=== PATIENT | female | born 1985 | race Hispanic/Latino ===

== ENCOUNTER 2020-12-30 00:58 | Emergency (ER) | payer BC ==
[2020-12-30] MEDS ORDERED: NA CHLORIDE 0.9% 1,000 ML ONE ×2 (01:32→03:00)
[2020-12-30] MEDS ORDERED: ONDANSETRON 4 MG/2 ML VIAL ONE (01:32)
[2020-12-30] MEDS ORDERED: MORPHINE 4 MG/ML SYR ONE (01:32)
[2020-12-30 01:33] LABS: Basophils % 0.7 % (0-1.3); Hematocrit 34.5 % (36.0-45.0); Lymphocytes % 20.6 % (15.3-44.8); MPV 9.9 fL (7.6-11.3); RBC Red Blood Cell Count 4.27 M/uL (3.86-4.86)
[2020-12-30 01:50] LABS: ALT/SGPT 24 U/L (12-78); AST/SGOT 16 U/L (15-37); Albumin 2.6 g/dL (3.4-5.0); Alkaline Phosphatase 110 U/L (45-117); BUN Blood Urea Nitrogen 27 mg/dL (7-18); Bicarbonate 23 mmol/L (21-32); Bilirubin Direct < 0.1 mg/dL (0-0.2); Bilirubin Total 0.4 mg/dL (0.2-1.0); Glucose Level 312 mg/dL (74-106); Lipase 223 U/L (73-393); Potassium 4.2 mmol/L (3.5-5.1); Protein, Total 7.6 g/dL (6.4-8.2); Sodium Level 139 mmol/L (136-145)
[2020-12-30 02:26] LABS: Urine Blood 1+ (NEG); Urine Glucose 2+ (NEG); Urine Protein 3+ (NEG); Urine Specific Gravity 1.025 (1.005-1.030)
[2020-12-30 02:49] LABS: Arterial Blood Carboxyhemoglob 1.3 % (0-1.5); Blood Gas Oxyhemoglobin 95.3 % (94-97); Blood O2 Saturation 97.5 % (92-98.5)
[2020-12-30 02:49] LABS: Urine Bacteria >50 /HPF (<20); Urine Mucus 2+ /HPF (NONE SEEN); Urine Yeast FEW (NONE SEEN)
[2020-12-30] MEDS ORDERED: CEFTRIAXONE/SWI 1gm 1 GM/10 ML SYR ONE (03:00)
[2020-12-30] MEDS ORDERED: INSULIN -REGULAR HUMAN 50 UNIT/0.5 ML ML ONE (03:35)
--- NOTE | 2020-12-30 03:49 | ER ---
Nurse's Notes [facility] Name: Cassandra Jin Age: 35 yrs Sex: Female : 1985 Arrival Date: 12/30/2020 Time: 01:01 Bed 7 Private MD: Diagnosis: UTI;Nephrolithiasis;Diabetes With Hyperglycemia Presentation: 12/30 01:11 Chief complaint: Patient states: Right lower abdomen pain that began about 6 hours ago, lp1 reports pain worsening; Denies any urinary symptoms, no N/V/D, fever. Coronavirus screen: Client denies travel out of the [place] in the last 14 days. congestion. Ebola Screen: No symptoms or risks identified at this time. Initial Sepsis Screen: Does the patient meet any 2 criteria? No. Patient's initial sepsis screen is negative. Does the patient have a suspected source of infection? No. Patient's initial sepsis screen is negative. Risk Assessment: Do you want to hurt yourself or someone else? Patient reports no desire to harm self or others. Onset of symptoms was December 29, 2020 at 19:00. 01:11 Method Of Arrival: Ambulatory lp1 01:11 Acuity: SUSANA 3 lp1 [employer]: 01:13 LMP 12/02/2020 lp1 Historical: - Allergies: 01:13 No Known Allergies; lp1 - Home Meds: 01:13 Victoza 2-Brad subcutaneous [Active]; Lisinopril Oral [Active]; Simvastatin Oral lp1 [Active]; Xigduo XR oral oral [Active]; - PMHx: 01:13 Diabetes - IDDM; Hypertension; Hyperlipidemia; lp1 - PSHx: 01:13 None; lp1 - Immunization history:: Adult Immunizations up to date. - Social history:: Smoking status: Patient denies any tobacco usage or history of. Screenin:14 Abuse screen: Denies threats or abuse. Denies injuries from another. Nutritional lp1 screening: No deficits noted. Tuberculosis screening: No symptoms or risk factors identified. Fall Risk None identified. Assessment: 01:26 General: Appears in no apparent distress. comfortable, Behavior is calm, cooperative. mg2 Pain: Complains of pain in right lower quadrant. Neuro: Level of Consciousness is awake, alert, obeys commands, Oriented to person, place, time, situation. Cardiovascular: Capillary refill < 3 seconds Patient's skin is warm and dry. Respiratory: Airway is patent Respiratory effort is even, unlabored, Respiratory pattern is regular, symmetrical. GI: Reports lower abdominal pain. : No signs and/or symptoms were reported regarding the genitourinary system. EENT: No signs and/or symptoms were reported regarding the EENT system. Derm: Skin is intact, is healthy with good turgor, Skin is pink, warm \T\ dry. normal. Musculoskeletal: Circulation, motion, and sensation intact. Capillary refill < 3 seconds. 02:06 Reassessment: Patient appears in no apparent distress at this time. Patient and/or jb4 family updated on plan of care and expected duration. Pain level reassessed. Patient is alert, oriented x 3, equal unlabored respirations, skin warm/dry/pink. Patient states feeling better. Vital Signs: 01:11 BP 161 / 88; Pulse 114; Resp 18; Temp 98.9(O); Pulse Ox 99% on R/A; Weight 104.33 kg lp1 (R); Height 5 ft. 8 in. (172.72 cm); Pain 9/10; 02:00 BP 145 / 82; Pulse 97; Resp 16; Pulse Ox 99% on R/A; jb4 03:23 BP 133 / 80; Pulse 90; Resp 18; Pulse Ox 100% on R/A; mg2 01:11 Body Mass Index 34.97 (104.33 kg, 172.72 cm) lp1 ED Course: 01:01 Patient arrived in ED. cl3 01:02 Liam Lobo MD is Attending Physician. mh7 01:12 Triage completed. lp1 01:12 Scott Gottlieb, JUDY is Primary Nurse. mg2 01:12 Arm band placed on. lp1 01:20 Inserted saline lock: 20 gauge in right antecubital area, using aseptic technique. mg2 Blood collected. by ALEXEY Pathak TEch. 01:27 Patient has correct armband on for positive identification. mg2 01:27 No provider procedures requiring assistance completed. mg2 03:47 Morales Payton MD is Referral Physician. mh7 04:05 IV discontinued, intact, bleeding controlled, No redness/swelling at site. Pressure mg2 dressing applied. Administered Medications: 01:25 Drug: Zofran (Ondansetron) 4 mg Route: IVP; Site: right antecubital; mg2 02:00 Follow up: Response: No adverse reaction jb4 01:26 Drug: NS 0.9% 1000 ml Route: IV; Rate: 1000 ml; Site: right antecubital; mg2 02:48 Follow up: Response: No adverse reaction; IV Status: Completed infusion; IV Intake: mg2 1000ml 01:26 Drug: morphine 4 mg Route: IVP; Site: right antecubital; mg2 02:07 Follow up: Response: No adverse reaction jb4 02:47 Drug: Rocephin - (cefTRIAXone) 1 grams Route: IVPB; Infused Over: 30 mins; Site: right mg2 antecubital; 04:05 Follow up: Response: No adverse reaction; IV Status: Completed infusion mg2 02:47 Drug: NS 0.9% 1000 ml Route: IV; Rate: 1000 ml; Site: right antecubital; mg2 04:04 Follow up: Response: No adverse reaction; IV Status: Completed infusion; IV Intake: mg2 1000ml 03:23 Drug: Insulin Regular Human 10 units {Co-Signature: mg2 (Scott Gottlieb RN).} Route: jb4 IVP; Site: right antecubital; 04:04 Follow up: Response: No adverse reaction; Blood sugar is lowered mg2 Intake: 02:48 IV: 1000ml; Total: 1000ml. mg2 04:04 IV: 1000ml; Total: 2000ml. mg2 Outcome: 03:48 Discharge ordered by . 7 04:05 Discharged to home ambulatory. mg2 04:05 Condition: stable 04:05 Discharge instructions given to patient, Instructed on discharge instructions, follow up and referral plans. medication usage, Demonstrated understanding of instructions, follow-up care, medications, Prescriptions given X 3. 04:05 Patient left the ED. mg2 Signatures: Terese Aguiar RN RN lp1 Jesus Harrison RN RN jb4 Scott Gottlieb RN RN mg2 Raffi Casanova cl3 Liam Lobo MD MD 7 Scott Gottlieb RN mg2
--- NOTE | 2020-12-30 03:49 | EDPHYS ---
Physician Documentation [facility] Name: Cassandra Jin Age: 35 yrs Sex: Female : 1985 Arrival Date: 12/30/2020 Time: 01:01 Bed 7 Private MD: ED Physician Liam Lobo HPI: 12/30 01:18 This 35 yrs old Female presents to ER via Ambulatory with complaints of Low mh7 Abdominal Pain. 01:18 The patient presents with abdominal pain in the lower abdomen. Onset: The mh7 symptoms/episode began/occurred last night. The symptoms do not radiate. 01:19 Associated signs and symptoms: Pertinent negatives: nausea, vomiting, and diarrhea, mh7 nausea and vomiting, anorexia, blood in stools, chest pain, constipation, diarrhea, dysuria, fever, headache, hematuria, nausea, palpitations, shortness of breath, vaginal discharge, vomiting, vomiting blood. The symptoms are described as intermittent, vague, waxing/waning. Modifying factors: The symptoms are alleviated by nothing, the symptoms are aggravated by nothing. Severity of pain: At its worst the pain was moderate last night, in the emergency department the pain is unchanged. 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 - Social history:: Smoking status: Patient denies any tobacco usage or history of. ROS: 01:19 Constitutional: Negative for fever, chills, and weight loss, Eyes: Negative for injury, mh7 pain, redness, and discharge, ENT: Negative for injury, pain, and discharge, Neck: Negative for injury, pain, and swelling, Cardiovascular: Negative for chest pain, palpitations, and edema, Respiratory: Negative for shortness of breath, cough, wheezing, and pleuritic chest pain, Back: Negative for injury and pain, : Negative for injury, bleeding, discharge, and swelling, MS/Extremity: Negative for injury and deformity, Skin: Negative for injury, rash, and discoloration, Neuro: Negative for headache, weakness, numbness, tingling, and seizure, Psych: Negative for depression, anxiety, suicide ideation, homicidal ideation, and hallucinations, Allergy/Immunology: Negative for hives, rash, and allergies, Endocrine: Negative for neck swelling, polydipsia, polyuria, polyphagia, and marked weight changes, Hematologic/Lymphatic: Negative for swollen nodes, abnormal bleeding, and unusual bruising. Exam: :19 Constitutional: This is a well developed, well nourished patient who is awake, alert, mh7 and in no acute distress. Head/Face: Normocephalic, atraumatic. Eyes: Pupils equal round and reactive to light, extra-ocular motions intact. Lids and lashes normal. Conjunctiva and sclera are non-icteric and not injected. Cornea within normal limits. Periorbital areas with no swelling, redness, or edema. Neck: Trachea midline, no thyromegaly or masses palpated, and no cervical lymphadenopathy. Supple, full range of motion without nuchal rigidity, or vertebral point tenderness. No Meningismus. Chest/axilla: Normal chest wall appearance and motion. Nontender with no deformity. No lesions are appreciated. Cardiovascular: Regular rate and rhythm with a normal S1 and S2. No gallops, murmurs, or rubs. Normal PMI, no JVD. No pulse deficits. Respiratory: Lungs have equal breath sounds bilaterally, clear to auscultation and percussion. No rales, rhonchi or wheezes noted. No increased work of breathing, no retractions or nasal flaring. :19 Back: No spinal tenderness. No costovertebral tenderness. Full range of motion. Skin: Warm, dry with normal turgor. Normal color with no rashes, no lesions, and no evidence of cellulitis. MS/ Extremity: Pulses equal, no cyanosis. Neurovascular intact. Full, normal range of motion. Neuro: Awake and alert, GCS 15, oriented to person, place, time, and situation. Cranial nerves II-XII grossly intact. Motor strength 5/5 in all extremities. Sensory grossly intact. Cerebellar exam normal. Normal gait. Psych: Awake, alert, with orientation to person, place and time. Behavior, mood, and affect are within normal limits. 01:19 Abdomen/GI: Inspection: obese Bowel sounds: normal, in all quadrants, Palpation: moderate abdominal tenderness, in the right lower quadrant, Rectal exam: the exam is deferred, because of patient request, Indicators: McBurney's point is not tender, Merlos's sign is negative, Rovsing's sign is negative, Obturator sign is negative, Psoas sign is negative, Liver: no appreciated palpable abnormalities, Hernia: not appreciated. Vital Signs: 01:11 BP 161 / 88; Pulse 114; Resp 18; Temp 98.9(O); Pulse Ox 99% on R/A; Weight 104.33 kg lp1 (R); Height 5 ft. 8 in. (172.72 cm); Pain 9/10; 02:00 BP 145 / 82; Pulse 97; Resp 16; Pulse Ox 99% on R/A; jb4 03:23 BP 133 / 80; Pulse 90; Resp 18; Pulse Ox 100% on R/A; mg2 01:11 Body Mass Index 34.97 (104.33 kg, 172.72 cm) lp1 MDM: 03:46 Differential diagnosis: appendicitis, bowel obstruction, diverticulitis, Ectopic mh7 , non-specific abd pain, Ovarian Torsion, Pyelonephritis, Ureterolithiasis, urinary tract infection. Data reviewed: vital signs, nurses notes, old medical records, lab test result(s), CBC, electrolytes, urinalysis, UPT: negative radiologic studies, CT scan. Data interpreted: Pulse oximetry: on room air is 100 %. Interpretation: normal. Counseling: I had a detailed discussion with the patient and/or guardian regarding: the historical points, exam findings, and any diagnostic results supporting the discharge/admit diagnosis, lab results, radiology results, the need for outpatient follow up, to return to the emergency department if symptoms worsen or persist or if there are any questions or concerns that arise at home. Response to treatment: the patient's symptoms have resolved after treatment, the patient's blood pressure is in an acceptable range, mental status has returned to baseline, the patient no longer shows bradycardia, the patient is not short of breath, the patient is not tachycardic, the patient's pain is gone, the patient's temperature has normalized, the patient is now symptom free. 03:48 Patient medically screened. 7 04:06 Refusal of service: The patient/guardian displays adequate decision making capability [facility] and despite a detailed discussion of alternatives, benefits, risks, and consequences refuses: Admission to the hospital for further work-up and treatment. 12/30 01:13 Order name: Basic Metabolic Panel [facility] [place] 12/30 01:13 Order name: CBC with Diff; Complete Time: 02:01 [facility] [place] 12/30 01:13 Order name: Hepatic Function [facility] [place] 12/30 01:13 Order name: Lipase; Complete Time: 02:01 [facility] [place] 12/30 01:14 Order name: Basic Metabolic Panel; Complete Time: 02:01 [facility] 12/30 01:14 Order name: Liver (Hepatic) Function; Complete Time: 02:01 [facility] 12/30 02:17 Order name: Urine Microscopic Only 1 12/30 02:17 Order name: Urine Culture 1 12/30 02:19 Order name: Urine Dipstick--Ancillary (enter results) [facility] 12/30 02:19 Order name: Urine --Ancillary (enter results) [facility] 12/30 02:26 Order name: Urine --Ancillary; Complete Time: 02:33 [facility] 12/30 02:26 Order name: Urine Dipstick-Ancillary; Complete Time: 02:33 [facility] 12/30 02:34 Order name: Arterial Blood Gas [facility] 12/30 02:34 Order name: Ketone, Serum [facility] 12/30 01:13 Order name: IV Saline Lock; Complete Time: 01:26 [facility] [place] 12/30 01:13 Order name: Labs collected and sent; Complete Time: 01:26 [facility] [place] 12/30 01:13 Order name: Urine Dipstick-Ancillary (obtain specimen); Complete Time: 02:22 [facility] [place] 12/30 01:13 Order name: Urine Test (obtain specimen); Complete Time: 02:22 [facility] [place] 12/30 02:02 Order name: CT Abd/Pelvis - IV Contrast Only [facility] 12/30 02:49 Order name: Urine Microscopic Only; Complete Time: 02:53 [facility] 12/30 02:54 Order name: ABG Arterial Blood Gas; Complete Time: 03:09 [facility] 12/30 03:13 Order name: Acetone Level; Complete Time: 03:13 EDMS Administered Medications: 01:25 Drug: Zofran (Ondansetron) 4 mg Route: IVP; Site: right antecubital; mg2 02:00 Follow up: Response: No adverse reaction jb4 01:26 Drug: NS 0.9% 1000 ml Route: IV; Rate: 1000 ml; Site: right antecubital; mg2 02:48 Follow up: Response: No adverse reaction; IV Status: Completed infusion; IV Intake: mg2 1000ml 01:26 Drug: morphine 4 mg Route: IVP; Site: right antecubital; mg2 02:07 Follow up: Response: No adverse reaction jb4 02:47 Drug: Rocephin - (cefTRIAXone) 1 grams Route: IVPB; Infused Over: 30 mins; Site: right mg2 antecubital; 04:05 Follow up: Response: No adverse reaction; IV Status: Completed infusion mg2 02:47 Drug: NS 0.9% 1000 ml Route: IV; Rate: 1000 ml; Site: right antecubital; mg2 04:04 Follow up: Response: No adverse reaction; IV Status: Completed infusion; IV Intake: mg2 1000ml 03:23 Drug: Insulin Regular Human 10 units {Co-Signature: mg2 (Scott Gottlieb RN).} Route: jb4 IVP; Site: right antecubital; 04:04 Follow up: Response: No adverse reaction; Blood sugar is lowered mg2 Disposition: 12/30/20 03:48 Discharged to Home. Impression: UTI, Nephrolithiasis, Diabetes With Hyperglycemia. - Condition is Stable. - Discharge Instructions: Kidney Stones, [id number], Urinary Tract Infection, Adult, [id number], Diabetes Mellitus and Food, Hyperglycemia, [id number]. - Prescriptions for Ibuprofen 800 mg Oral Tablet - take 1 tablet by ORAL route every 8 hours As needed take with food; 15 tablet. Cipro 500 mg Oral Tablet - take 1 tablet by ORAL route every 12 hours for 10 days; 20 tablet. Diflucan 150 mg Oral Tablet - take 1 tablet by ORAL route one time for 1 day; 1 tablet. - Medication Reconciliation Form, Thank You Letter, Antibiotic Education, Prescription Opioid Use form. - Follow up: Private Physician; When: 1 - 2 days; Reason: Worsening of condition, Recheck today's complaints, Continuance of care, Re-evaluation by your physician. Follow up: Morales Payton MD; When: 1 - 2 days; Reason: Worsening of condition, Recheck today's complaints. - Problem is new. - Symptoms have improved. Signatures: Dispatcher [employer] EDMS Terese Aguiar RN RN lp1 Jesus Harrison RN RN jb4 Scott Gottlieb RN RN mg2 Liam Lobo MD MD 7 Scott Gottlieb RN mg2 Corrections: (The following items were deleted from the chart) 04:05 03:48 12/30/2020 03:48 Discharged to Home. Impression: UTI; Nephrolithiasis; Diabetes mg2 With Hyperglycemia. Condition is Stable. Forms are Medication Reconciliation Form, Thank You Letter, Antibiotic Education, Prescription Opioid Use. Follow up: Private Physician; When: 1 - 2 days; Reason: Worsening of condition, Recheck today's complaints, Continuance of care, Re-evaluation by your physician. Follow up: Morales Payton; When: 1 - 2 days; Reason: Worsening of condition, Recheck today's complaints. Problem is new. Symptoms have improved. 7
[2020-12-30 04:14] VITALS: BP 133/80; TEMP 98.9; O2SAT 100
--- NOTE | 2020-12-31 12:01 | RAD REPORT ---
EXAM DESCRIPTION: CT - Abdomen Pelvis W Contrast - 12/30/2020 7:12 am CLINICAL HISTORY: The patient is 35 years old and is Female; ABD PAIN TECHNIQUE: Axial computed tomography images of the abdomen and pelvis with intravenous contrast. S agittal and coronal reformatted images were created and reviewed. This CT exam was performed using one or more of the following dose reduction techniques: automated exposure control, adjustment of t he mA and/or kV according to patient size, and/or use of iterative reconstruction technique. COMPARISON: No relevant prior studies available. FINDINGS: LUNG BASES: Unremarkable. No mass. No consolidation. ABDOMEN: LIVER: The liver is enlarged and diffusely fatty. GALLBLADDER AND BILE DUCTS: No calcified stones. No ductal dilation. PANCREAS: No ductal dilation. No mass. SPLEEN: Unremarkable. ADRENALS: Unremarkable. No mass. KIDNEYS AND URETERS: Mild right hydroureteronephrosis is present without obstructing calculus. Ex tensive periureteral stranding on the right with associated mild thickening of the urothelium specifi nikki distally is noted. Mild right perinephric stranding is present. Punctate right intrarenal calci fications are noted. The left kidney is unremarkable. STOMACH AND BOWEL: The stomach is distended with food contents. The small bowel is relatively nor mal in caliber. Stool is present throughout the colon. There is no mucosal thickening or evidence of bowel obstruction. PELVIS: APPENDIX: The appendix is normal in caliber without surrounding inflammation. BLADDER: The bladder is not well distended. Moderate bladder wall thickening is present. REPRODUCTIVE: Unremarkable as visualized. ABDOMEN and PELVIS: INTRAPERITONEAL SPACE: Unremarkable. No free air. No significant fluid collection. BONES/JOINTS: No acute fracture. SOFT TISSUES: The soft tissues are normal. VASCULATURE: Unremarkable. No abdominal aortic aneurysm. LYMPH NODES: Unremarkable. No enlarged lymph nodes. IMPRESSION: 1. Mild right hydroureteronephrosis without obstructing calculus. However, there is ex tensive uroepithelial thickening with surrounding inflammation. Findings may be secondary to a recent ly passed stone. Alternatively, ureteritis with superimposed stricture is within the differential. 2. Diffuse bladder wall thickening out of proportion to the degree of distention suggestive of cyst itis. Electronically signed by: Kiana Alanis MD 12/30/2020 3:02 AM [employer] F[employer]ER Due to temporary technical issues with the PACS/Fluency reporting system, reports are being signed by the in house radiologists without review as a courtesy to insure prompt reporting. The interpreting radiologist is fully responsible for the content of the report.
== END 2020-12-30 04:05 | disposition home or self-care (01) ==
LOC: ER 00:58
DX: N39.0 Urinary tract infection, site not specified (principal); N20.0 Calculus of kidney; E11.65 Type 2 diabetes mellitus with hyperglycemia; I10 Essential (primary) hypertension; E78.5 Hyperlipidemia, unspecified
CPT/HCPCS: 96365; 96361; 87088; 85025; 87086; 80048; 36415; 82010; 81025; 82947; 80076; 87077; 87186; 83690; 74177; 82805; 96375; 99284; Q9967; J0696; J7030 ×2; J2405; 81003; 81015

== ENCOUNTER 2021-06-22 12:09 | Emergency (ER) | payer BC ==
--- OUTSIDE RECORDS SUMMARY | 2021-06-22 12:12 | XMS REPORT | Continuity of Care Document ---
:1985 Author Organization [facility] t Address [address] [place] [address] Care Team Providers Name Role Phone Asked, Pcp Primary Care Physician Unavailable Problems Condition Condition Condition Status Onset Resolution Last Treating Co mments Source Name Details Category Date Date Treatment Clinician Date Condyloma Condyloma Disease Active [facility] l Allergies, Adverse Reactions, Alerts This patient has no known allergies or adverse reactions. Family History Family Member Diagnosis Comments Start Date Stop Date Source Natural father Diabetes [facility] Natural mother Breast cancer [facility] Natural mother Diabetes [facility] Social History Social Habit Start Date Stop Date Quantity Comments Source Tobacco use and 2019-06-09 2019-06-09 Never used [facility] exposure 00:00:00 00:00:00 Hospital Alcohol intake 2019-06-09 2019-06-09 Current drinker [facility] 00:00:00 00:00:00 of alcohol Hospital (finding) Sex Ass[birth year] At [birth year] [facility] 00:[facility]00 [facility] Smoking Status Start Date Stop Date Source Never smoker [facility] Medications Ordered Filled Start Stop Current Ordering Indication Dosage Frequency Signature Comments Components Source Medication Medication Date Date Medication? Clinician (SIG) Name Name Victoza Victoza 2019- No Tin 1.[address] [facility] Immunizations Ordered Filled Immunization Date Status Comments Sourc e Immunization Name Name Afluria single dose Afluria single dose 2019-09-[address] [facility] Procedures This patient has no known procedures. Plan of Care Planned Activity Planned Date Details Comments Source Future Scheduled Test COVID-19 VACCINE (1) [facility] [code = COVID-19 VACCINE (1)] Future Scheduled Test Hepatitis C screening [facility] (procedure) [code = 663060223] Future Scheduled Test Screening for [facility] malignant neoplasm of cervix (procedure) [code = 207603067] Future Scheduled Test INFLUENZA VACCINE [facility] [code = INFLUENZA VACCINE] Encounters Start End Encounter Admission Attending Care Care Encounter Source Date/Time Date/Time Type Type Clinicians Facility Department ID 2021-02-26 2021-02-26 Outpatient [facility] [id number] 2021-01-28 2021-01-28 [facility] [id number] [facility] 2020-12-06 2020-12-06 [facility] [id number] [facility] 2020-12-04 2020-12-04 [facility] [id number] [facility] 2020-11-29 2020-11-29 [facility] [id number] [facility] 2020-11-28 2020-11-28 [facility] [id number] [facility] 2020-10-10 2020-10-10 [facility] [id number] [facility] 2020-07-09 2020-07-09 [facility] [id number] [facility] 11:32:00 11:32:[address] [facility] Medicine Medicine Outpati ent Clinics 2020-06-29 2020-06-29 [facility] [id number] 11:15:00 11:15:00 [place] [employer] [facility] Medicine Outpati ent Clinics 2020-05-16 2020-05-16 [facility] [id number] 13:30:00 13:30:00 [place] [employer] [place] [facility] Medicine Outpati ent Clinics 2020-05-11 2020-05-11 [facility] [id number] 08:22:00 08:22:00 [place] [employer] [place] [facility] Medicine Outpati ent Clinics 2020-03-30 2020-03-30 [facility] [id number] [facility] 11[facility]00:00 11:00:00 [place] [employer] [place] [facility] Medicine Outpati ent Clinics 2020-03-12 2020-03-12 [facility] [id number] 15[facility]26:00 15:26:00 [place] [employer] [place] [facility] Medicine Outpati ent Clinics 2019-12-30 2019-12-30 [facility] [id number] 10:30:00 10:30:00 [place] [employer] [place] [facility] Medicine Outpati ent Clinics 2019-09-30 2019-09-30 [facility] [id number] 08:30:00 08:30:00 [place] [employer] [place] [facility] Medicine l Medicine Outpati ent Clinics 2019-07-11 2019-07-11 [facility] [id number] 16:01:00 16:01:00 [place] [employer] [place] [facility] Medicine Outpati ent Clinics 2019-06-24 2019-06-24 [facility] [id number] 09:45:00 09:45:00 [place] [employer] [place] [facility] Medicine Outpati ent Clinics 2019-03-17 2019-03-17 [facility] [id number] 13[facility]00:00 13:00:[address] [facility] Medicine l Medicine Outpati ent Clinics 2018-12-27 2018-12-27 [facility] [id number] [facility] 09:17:00 09:17:[address] [place] [address] [facility] Medicine Outpati ent Clinics 2018-12-17 2018-12-17 [facility] [id number] 09:30:00 09:30:[address] [facility] Medicine l Medicine Outpati ent Clinics 2018-10-25 2018-10-25 [facility] [id number] [facility] 16:19:00 16:19:[address] [place] [address] [facility] Medicine Outpati ent Clinics 2018-08-13 2018-08-13 [facility] [id number] 13:47:00 13:47:00 [place] [employer] [address] [facility] Medicine Outpati ent Clinics 2018-07-30 2018-07-30 [facility] [id number] [facility] 17:25:00 17:25:[address] [facility] Medicine Outpati ent Clinics 2018-07-16 2018-07-16 [facility] [id number] 08:15:00 08:15:00 [place] [employer] [address] [facility] Medicine Medicine Outpati ent Clinics 2018-07-12 2018-07-12 [facility] [id number] [facility] 14:15:00 14:15:[address] [facility] Medicine Medicine Outpati ent Clinics 2018-04-16 2018-04-16 [facility] [id number] 14:40:00 14:40:[address] [facility] Medicine Outpati ent Clinics 2018-03-19 2018-03-19 [facility] [id number] 08:15:00 08:15:[address] [facility] Medicine Medicine Outpati ent Clinics 2018-02-05 2018-02-05 [facility] [id number] 09:30:00 09:30:00 t [place] s V[facility] Family Medicine Medicine Outpati ent Clinics Results This patient has no known results.
[2021-06-22 12:49] LABS: Urine Blood 2+ (Negative); Urine Glucose 2+ (Negative); Urine Protein 3+ (Negative)
--- NOTE | 2021-06-22 13:15 | RAD REPORT ---
EXAM DESCRIPTION: CT - Stone Protocol - 06/22/2021 12:58 pm CLINICAL HISTORY: Abdominal pain. ABD PAIN COMPARISON: Abdomen Pelvis W Contrast dated 12/30/2020 TECHNIQUE: CT imaging of the abdomen and pelvis was performed without contrast. Solid organ, bowel a nd vascular assessment is limited due to lack of IV and oral contrast. All CT scans are performed using dose optimization technique as appropriate and may include automated exposure control or mA/KV adjustment according to patient size. FINDINGS: The lower lung albarado are clear. Coronary artery calcifications. Left-sided periureteric stranding. No hydronephrosis. 3 millimeter stone in the right kidney. No uret eral calculi identified. The bladder wall appears thickened. No bowel obstruction identified. Gallbla dder is unremarkable. Spleen is unremarkable. The pancreas is unremarkable. The liver is unremarkable . Abdominal aortic atherosclerosis. The osseous structures are within normal limits. IMPRESSION: Left-sided periureteric stranding and bladder wall thickening may be secondary to cystit is and ascending urinary tract infection. No ureteral calculus identified. A recently passed stone co uld appear similar. A limited non-contrast examination was performed as detailed.
--- NOTE | 2021-06-22 14:11 | EDPHYS ---
Physician Documentation [facility] Name: Cassandra Jin Age: 35 yrs Sex: Female : 1985 Arrival Date: 06/22/2021 Time: 12:11 Bed 16 Private MD: Tin Sandhu ED Physician Jarrett Hong HPI: 06/22 14:19 This 35 yrs old Female presents to ER via Ambulatory with complaints of Flank kb Pain. 14:19 The patient presents with pain that is acute, with no known mechanism of injury. The kb symptoms are located in the left low back. Onset: The symptoms/episode began/occurred 3 day(s) ago. The pain does not radiate. Associated signs and symptoms: The patient has no apparent associated signs or symptoms. The problem was sustained without known cause. Modifying factors: The patient symptoms are alleviated by nothing, the patient symptoms are aggravated by any movement. Severity of symptoms: At their worst the symptoms were moderate, in the emergency department the symptoms are unchanged. The patient has not experienced similar symptoms in the past. The patient has not recently seen a physician. 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 - Social history:: Smoking status: Patient denies any tobacco usage or history of. Patient uses alcohol, occasionally. ROS: 14:18 Constitutional: Negative for fever, chills, and weight loss. kb 14:18 Back: Positive for pain at rest, pain with movement, of the left low back. 14:18 All other systems are negative. Exam: 14:16 Constitutional: This is a well developed, well nourished patient who is awake, alert, kb and in no acute distress. Head/Face: Normocephalic, atraumatic. ENT: Moist Mucous membranes Respiratory: Respirations even and unlabored. No increased work of breathing, no retractions or nasal flaring. Abdomen/GI: Soft, non-tender. No distention Skin: Warm, dry with normal turgor. Normal color. MS/ Extremity: Pulses equal, no cyanosis. Neurovascular intact. Full, normal range of motion. Neuro: Awake and alert, GCS 15, oriented to person, place, time, and situation. Moves all extremities. Normal gait. Psych: Awake, alert, with orientation to person, place and time. Behavior, mood, and affect are within normal limits. 14:16 Back: pain, that is moderate, of the left low back, ROM is normal, normal spinal alignment noted, CVA tenderness, is absent. Vital Signs: 12:30 BP 155 / 90; Pulse 97; Resp 20; Temp 97.1(TE); Pulse Ox 100% ; Weight 104.33 kg; Height kg 5 ft. 8 in. (172.72 cm); Pain 8/10; 14:33 BP 147 / 85; Pulse 89; Resp 19; Temp 97.5; Pulse Ox 100% ; bp 12:30 Body Mass Index 34.97 (104.33 kg, 172.72 cm) kg MDM: 12:33 Patient medically screened. kb 14:08 Data reviewed: vital signs, nurses notes. Data interpreted: Pulse oximetry: on room air kb is 100 %. Interpretation: normal. Counseling: I had a detailed discussion with the patient and/or guardian regarding: the historical points, exam findings, and any diagnostic results supporting the discharge/admit diagnosis, the need for outpatient follow up, a family practitioner, to return to the emergency department if symptoms worsen or persist or if there are any questions or concerns that arise at home. 06/22 12:49 Order name: Urine Dipstick-Ancillary; Complete Time: 13:08 EDMS 06/22 12:34 Order name: CT Stone Protocol; Complete Time: 13:22 kb 06/22 13:03 Order name: Urine --Ancillary (enter results) eb 06/22 12:34 Order name: Urine Dipstick-Ancillary (obtain specimen); Complete Time: 12:50 kb 06/22 12:34 Order name: Urine Test (obtain specimen); Complete Time: 12:49 kb Administered Medications: 14:15 Drug: Augmentin (Amoxicillin-Clavulanate) 875 mg Route: PO; bp 14:32 Follow up: Response: No adverse reaction bp 14:15 Drug: Ketorolac 60 mg Route: IM; Site: left gluteus; bp 14:32 Follow up: Response: Pain is decreased bp 14:15 Drug: HYDROcodone-acetaminophen 5 mg-325 mg 1 tabs Route: PO; bp 14:32 Follow up: Response: Pain is decreased bp Disposition: 18:08 Co-signature as Attending Physician, Jarrett Hong MD I agree with the assessment and kim plan of care. Disposition Summary: 06/22/21 14:11 Discharge Ordered Location: Home kb Condition: Stable kb Diagnosis - UTI/ Urinary tract infection, site not specified kb Followup: kb - With: Emergency Department - When: As needed - Reason: Worsening of condition Followup: kb - With: Private Physician - When: 2 - 3 days - Reason: Recheck today's complaints, Continuance of care, Re-evaluation by your physician Discharge Instructions: - Discharge Summary Sheet kb - Urinary Tract Infection, Adult, [id number] kb Forms: - Medication Reconciliation Form kb - Thank You Letter kb - Antibiotic Education kb - Prescription Opioid Use kb Prescriptions: - Augmentin 875-125 mg Oral Tablet - take 1 tablet by ORAL route every 12 hours for 10 days; 20 tablet; Refills: 0, kb Product Selection Permitted - Diclofenac Sodium 75 mg Oral tablet,delayed release (DR/EC) - take 1 tablet by ORAL route 2 times per day As needed; 30 tablet; Refills: 0, kb Product Selection Permitted Signatures: Dispatcher [employer] Jacqueline Mena, MADISYN-C MADISYN-Jarrett Conroy MD MD cha Peltier, Brian, RN RN Kendra Chao RN RN kg
--- NOTE | 2021-06-22 14:11 | ER ---
Nurse's Notes [facility] Name: Cassandra Jin Age: 35 yrs Sex: Female : 1985 Arrival Date: 06/22/2021 Time: 12:11 Bed 16 Private MD: Tin Sandhu Diagnosis: UTI/ Urinary tract infection, site not specified Presentation: 06/22 12:30 Chief complaint: Patient states: Left flank and back pain since . Coronavirus kg screen: Client denies travel out of the [place] in the last 14 days. At this time, unable to obtain information related to travel outside the [place] At this time, the client does not indicate any symptoms associated with coronavirus-19. Ebola Screen: Patient negative for fever greater than or equal to 101.5 degrees Fahrenheit, and additional compatible Ebola Virus Disease symptoms Patient denies exposure to infectious person. Patient denies travel to an Ebola-affected area in the 21 days before illness onset. No symptoms or risks identified at this time. Initial Sepsis Screen: Does the patient meet any 2 criteria? No. Patient's initial sepsis screen is negative. Does the patient have a suspected source of infection? No. Patient's initial sepsis screen is negative. Risk Assessment: Do you want to hurt yourself or someone else? Patient reports no desire to harm self or others. Onset of symptoms was June 20, 2021. 12:30 Method Of Arrival: Ambulatory kg 12:30 Acuity: SUSANA 3 kg Triage Assessment: 12:30 General: Appears distressed, uncomfortable, Behavior is cooperative, appropriate for bp age, anxious. Pain: Complains of pain in left flank. EENT: No deficits noted. Neuro: No deficits noted. Cardiovascular: No deficits noted. Respiratory: No deficits noted. GI: No signs and/or symptoms were reported involving the gastrointestinal system. : Reports pain in left flank(s), in lower back. Derm: No deficits noted. Musculoskeletal: No deficits noted. 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 kg Historical: - Allergies: 12:32 No Known Allergies; kg - Home Meds: 12:32 Tresiba FlexTouch U-100 100 unit/mL (3 mL) subcutaneous inpn [Active]; lisinopril Oral kg [Active]; Simvastatin Oral [Active]; 12:37 Rybelsus 7 mg oral tab 1 tab once daily [Active]; kg - PMHx: 12:32 Diabetes - IDDM; Hyperlipidemia; Hypertension; kg - PSHx: 12:32 None; kg - Immunization history:: Adult Immunizations not up to date, Client reports receiving the 2nd dose of the Covid vaccine, Date received: February 23, 2021 Client reports receiving the 1st dose of the Covid vaccine, January 19, 2021 [facility]. - Social history:: Smoking status: Patient denies any tobacco usage or history of. Patient uses alcohol, occasionally. Screenin:30 Abuse screen: Denies threats or abuse. Denies injuries from another. Nutritional bp screening: No deficits noted. Tuberculosis screening: No symptoms or risk factors identified. Fall Risk None identified. Assessment: 12:30 General: SEE TRIAGE NOTE. bp 14:00 Reassessment: No changes from previously documented assessment. Patient and/or family bp updated on plan of care and expected duration. Pain level reassessed. PT RETURNED FROM CT, NOTED STRANDING ON CT. Vital Signs: 12:30 BP 155 / 90; Pulse 97; Resp 20; Temp 97.1(TE); Pulse Ox 100% ; Weight 104.33 kg; Height kg 5 ft. 8 in. (172.72 cm); Pain 8/10; 14:33 BP 147 / 85; Pulse 89; Resp 19; Temp 97.5; Pulse Ox 100% ; bp 12:30 Body Mass Index 34.97 (104.33 kg, 172.72 cm) kg ED Course: 12:11 Patient arrived in ED. as 12:11 Tin Sandhu DO is Private Physician. as 12:11 Jacqueline Ndiaye FNP-C is [facility]. kb 12:11 Jarrett Hong MD is Attending Physician. kb 12:30 Patient has correct armband on for positive identification. Bed in low position. Call bp light in reach. Side rails up X2. 12:30 Arm band placed on. bp 12:32 Triage completed. kg 12:42 Jadiel Lopes, JUDY is Primary Nurse. bp 12:58 CT Stone Protocol In Process Unspecified. EDMS 14:33 No provider procedures requiring assistance completed. Patient did not have IV access bp during this emergency room visit. Administered Medications: 14:15 Drug: Augmentin (Amoxicillin-Clavulanate) 875 mg Route: PO; bp 14:32 Follow up: Response: No adverse reaction bp 14:15 Drug: Ketorolac 60 mg Route: IM; Site: left gluteus; bp 14:32 Follow up: Response: Pain is decreased bp 14:15 Drug: HYDROcodone-acetaminophen 5 mg-325 mg 1 tabs Route: PO; bp 14:32 Follow up: Response: Pain is decreased bp Outcome: 14:11 Discharge ordered by MD. lainez 14:33 Discharged to home ambulatory. bp 14:33 Condition: stable 14:33 Discharge instructions given to patient, Instructed on discharge instructions, follow up and referral plans. medication usage, Demonstrated understanding of instructions, follow-up care, medications, Prescriptions given X 2. 14:38 Patient left the ED. bp Signatures: Dispatcher [employer] EDMS Jacqueline Ndiaye FNP-C FNP-Regi Cifuentes Brian, RN RN bp Kendra Mason RN RN kg Corrections: (The following items were deleted from the chart) 14:05 13:10 Inserted saline lock: 22 gauge in right forearm, using aseptic technique. Blood bp collected. bp
[2021-06-22] MEDS ORDERED: HYDROCODONE/APAP 5/325 MG TAB ONE (14:38)
[2021-06-22] MEDS ORDERED: KETOROLAC 30 MG/ML INJ ONE (14:48)
[2021-06-22] MEDS ORDERED: AMOX/K CLAV 875 MG TAB ONE (14:48)
[2021-06-22 14:54] VITALS: O2SAT 100
[2021-06-22 15:09] VITALS: BP 147/85; TEMP 97.5
== END 2021-06-22 14:38 | disposition home or self-care (01) ==
LOC: ER 12:09
DX: N39.0 Urinary tract infection, site not specified (principal); I10 Essential (primary) hypertension; E11.9 Type 2 diabetes mellitus without complications
CPT/HCPCS: 74176; 76377; 81003; 81025; 96372; 99283

== ENCOUNTER 2021-08-31 07:17 | Emergency (ER) | payer BC ==
[2021-08-31 07:48] LABS: Urine Blood Trace-lysed (Negative); Urine Glucose 3+ (Negative); Urine Protein 2+ (Negative)
[2021-08-31] MEDS ORDERED: FAMOTIDINE 20 MG/2 ML VIAL IV ONE (08:14)
[2021-08-31] MEDS ORDERED: NA CHLORIDE 0.9% 50 ML ONE (08:14)
[2021-08-31 08:26] LABS: Absolute Lymphocytes (CBC) 1.3 K/uL (0.7-4.9); Basophils % 0.3 % (0-1.3); Hematocrit 38.9 % (36.0-45.0); Lymphocytes % 15.4 % (15.3-44.8); MPV 8.9 fL (7.6-11.3); RBC Red Blood Cell Count 4.67 M/uL (3.86-4.86)
[2021-08-31 08:45] LABS: ALT/SGPT 27 U/L (12-78); AST/SGOT 10 U/L (15-37); Albumin 3.4 g/dL (3.4-5.0); Alkaline Phosphatase 92 U/L (45-117); BUN Blood Urea Nitrogen 30 mg/dL (7-18); Bicarbonate 24 mmol/L (21-32); Bilirubin Direct < 0.1 mg/dL (0-0.2); Bilirubin Total 0.2 mg/dL (0.2-1.0); Lipase 271 U/L (73-393); Potassium 4.5 mmol/L (3.5-5.1); Protein, Total 8.4 g/dL (6.4-8.2); Sodium Level 138 mmol/L (136-145)
[2021-08-31 08:54] LABS: Glucose Level 425 mg/dL (74-106)
--- NOTE | 2021-08-31 10:27 | EDPHYS ---
Physician Documentation [facility] Name: Cassandra Jin Age: 35 yrs Sex: Female : 1985 Arrival Date: 08/31/2021 Time: 07:20 Bed 19 Private MD: ALEXEY Physician Jarrett Hong HPI: 08/31 07:37 This 35 yrs old Female presents to ER via Ambulatory with complaints of Rash. [facility] 07:37 The patient's rash thought to be caused by an unknown cause. The rash is located on the [facility] body diffusely. Onset: The symptoms/episode began/occurred gradually, 4 day(s) ago. Associated signs and symptoms: Pertinent positives: itching. Is a 35-year-old female with history of diabetes mellitus, hyperlipidemia, hypertension the presents emerged department with complaints of diffuse pruritus beginning this past Thursday. Patient did begin taking Humalog this past Thursday. Denies an actual rash just states having diffuse itching. Denies vomiting, abdominal pain, shortness of breath, swelling sensation to her throat.. Historical: - Allergies: 07:30 No Known Allergies; aa5 - PMHx: 07:30 Diabetes - IDDM; Hyperlipidemia; Hypertension; aa5 - PSHx: 07:30 None; aa5 - Immunization history:: Client reports receiving the 2nd dose of the Covid vaccine, Flu vaccine is not up to date. - Social history:: Smoking status: Patient denies any tobacco usage or history of. ROS: 07:37 Constitutional: Negative for fever, chills, and weight loss, Cardiovascular: Negative jm for chest pain, palpitations, and edema, Respiratory: Negative for shortness of breath, cough, wheezing, and pleuritic chest pain. 07:37 Allergy/Immunology: Positive for pruritus. 07:37 All other systems are negative. Exam: 07:37 Constitutional: This is a well developed, well nourished patient who is awake, alert, jmm and in no acute distress. Head/Face: atraumatic. Eyes: EOMI, no conjunctival erythema appreciated ENT: Moist Mucus Membranes Neck: Trachea midline, Supple Chest/axilla: Normal chest wall appearance and motion. Cardiovascular: Regular rate and rhythm. No edema appreciated Respiratory: Normal respirations, no respiratory distress appreciated 07:37 Back: Normal ROM Skin: General appearance color normal MS/ Extremity: Moves all extremities, no obvious deformities appreciated, no edema noted to the lower extremities Neuro: Awake and alert, normal gait Psych: Behavior is normal, Mood is normal, Patient is cooperative and pleasant 07:37 Abdomen/GI: Inspection: abdomen appears normal, Bowel sounds: normal, Palpation: abdomen is soft and non-tender, in all quadrants. Vital Signs: 07:25 BP 142 / 90; Pulse 105; Resp 18 S; Temp 98.3(O); Pulse Ox 100% on R/A; Weight 104.33 kg aa5 (R); Height 5 ft. 8 in. (172.72 cm) (R); 08:40 BP 135 / 81; Pulse 94; Resp 16; Pulse Ox 99% ; bp 10:45 BP 116 / 63; Pulse 86; Resp 15; Pulse Ox 100% ; bp 07:25 Body Mass Index 34.97 (104.33 kg, 172.72 cm) aa5 MDM: 07:30 Patient medically screened. kim 10:25 Data reviewed: vital signs, nurses notes. Counseling: I had a detailed discussion with jessica the patient and/or guardian regarding: the historical points, exam findings, and any diagnostic results supporting the discharge/admit diagnosis, lab results, the need for outpatient follow up, to return to the emergency department if symptoms worsen or persist or if there are any questions or concerns that arise at home. ED course: The patient's labs reveal hyperglycemia. Patient given normal saline bolus along with 10 of insulin IV. Patient advised to follow-up with her PCP for a change in her medications to help alleviate this. I do not suspect that she is in DKA. UA does show signs of infection. Will treat with antibiotics patient otherwise given strict return precautions. Patient understood and agrees plan of care.. 08/31 07:37 Order name: Basic Metabolic Panel; Complete Time: 09:05 [facility] 08/31 07:37 Order name: CBC with Diff; Complete Time: 08:37 [facility] 08/31 07:37 Order name: Hepatic Function; Complete Time: 09:05 [facility] 08/31 07:37 Order name: Lipase; Complete Time: 09:05 [facility] 08/31 07:48 Order name: Urine Dipstick-Ancillary; Complete Time: 07:50 [facility] 08/31 07:49 Order name: Urine --Ancillary (enter results) 08/31 07:37 Order name: IV Saline Lock; Complete Time: 07:54 [facility] 08/31 07:37 Order name: Labs collected and sent; Complete Time: 07:54 [facility] 08/31 07:37 Order name: Urine Dipstick-Ancillary (obtain specimen); Complete Time: 07:55 [facility] 08/31 07:37 Order name: Urine Test (obtain specimen); Complete Time: 07:55 [facility] 08/31 07:49 Order name: Urine --Ancillary; Complete Time: 08:19 [facility] 08/31 11:03 Order name: Glucose, Ancillary Testing; Complete Time: 12:22 [facility] 08/31 08:06 Order name: Labs - recollect needed: blood hemolyzed recollect; Complete Time: 08:40 eb Administered Medications: 08:00 Drug: Pepcid (famotidine) 20 mg Route: IVP; Site: right forearm; bp 08:40 Follow up: Response: No adverse reaction bp 10:20 Drug: Insulin Regular Human 10 units {Co-Signature: opal (Akhil Ray RN).} Route: bp IVP; Site: right antecubital; 10:39 Follow up: Response: No adverse reaction bp Disposition: 12:56 Co-signature as Attending Physician, Jarrett Hong MD I agree with the assessment and kim plan of care. Disposition Summary: 08/31/21 10:27 Discharge Ordered Location: Home [facility] Condition: Stable [facility] Diagnosis - Pruritus jmm - Urinary tract infection jmm - Hyperglycemia, nonketotic jmm Followup: [facility] - With: Private Physician - When: 2 - 3 days - Reason: Recheck today's complaints, Continuance of care, Re-evaluation by your physician Discharge Instructions: - Discharge Summary Sheet jm - Hyperglycemia jmm - Pruritus jmm - Urinary Tract Infection, Adult [facility] Forms: - Medication Reconciliation Form [facility] - Thank You Letter [facility] - Antibiotic Education [facility] - Prescription Opioid Use [facility] - Work release form eb Prescriptions: - Cephalexin 500 mg Oral Capsule - take 1 capsule by ORAL route every 6 hours for 10 days; 40 capsule; Refills: 0, [facility] Product Selection Permitted - Hydroxyzine HCl 25 mg Oral Tablet - take 1 tablet by ORAL route every 6 hours As needed; 30 tablet; Refills: 0, [facility] Product Selection Permitted - Pepcid 20 mg Oral Tablet - take 1 tablet by ORAL route every 12 hours for 10 days; 20 tablet; Refills: 0, jessica Product Selection Permitted Signatures: Dispatcher [employer] Jarrett Villegas MD MD cha Mickail, Joel, PA PA jmm Calderon, Audri, RN RN aa5 Jadiel Lopes RN RN Cassandra Salazar RN [email or web address]
--- NOTE | 2021-08-31 10:27 | ER ---
Nurse's Notes [facility] Name: Cassandra Jin Age: 35 yrs Sex: Female : 1985 Arrival Date: 08/31/2021 Time: 07:20 Bed 19 Private MD: Diagnosis: Pruritus ;Urinary tract infection ;Hyperglycemia, nonketotic Presentation: 08/31 07:25 Chief complaint: Patient states: rash all over that is itchy and began Thursday. Pt aa5 states "my specialist put me on Humalog and I started taking it on Thursday and then all this started". 07:25 Coronavirus screen: At this time, the client does not indicate any symptoms associated aa5 with coronavirus-19. Ebola Screen: Patient negative for fever greater than or equal to 101.5 degrees Fahrenheit, and additional compatible Ebola Virus Disease symptoms. Initial Sepsis Screen: Does the patient meet any 2 criteria? HR > 90 bpm. Does the patient have a suspected source of infection? No. Patient's initial sepsis screen is negative. Risk Assessment: Do you want to hurt yourself or someone else? Patient reports no desire to harm self or others. Onset of symptoms was August 2021. 07:25 Method Of Arrival: Ambulatory aa5 07:25 Acuity: SUSANA 4 aa5 Triage Assessment: 07:30 General: Appears distressed, uncomfortable, obese, Behavior is cooperative, appropriate bp for age, anxious. Pain: Complains of pain in GLOBAL. EENT: No deficits noted. Neuro: No deficits noted. Cardiovascular: No deficits noted. Respiratory: Airway is patent Respiratory effort is even, unlabored. GI: No signs and/or symptoms were reported involving the gastrointestinal system. : No signs and/or symptoms were reported regarding the genitourinary system. Derm: Reports itching. Musculoskeletal: No deficits noted. Historical: - Allergies: 07:30 No Known Allergies; aa5 - PMHx: 07:30 Diabetes - IDDM; Hyperlipidemia; Hypertension; aa5 - PSHx: 07:30 None; aa5 - Immunization history:: Client reports receiving the 2nd dose of the Covid vaccine, Flu vaccine is not up to date. - Social history:: Smoking status: Patient denies any tobacco usage or history of. Screenin:57 Abuse screen: Denies threats or abuse. Denies injuries from another. Nutritional bp screening: No deficits noted. Tuberculosis screening: No symptoms or risk factors identified. Fall Risk None identified. Assessment: 07:30 General: SEE TRIAGE NOTE. bp 08:40 Reassessment: No changes from previously documented assessment. Patient and/or family bp updated on plan of care and expected duration. Pain level reassessed. LABS REDRAWN AND SENT. 10:52 Reassessment: PT D/C HOME AMBULATORY, DX WITH PRURITIS, HYPERGLYCEMIA AND UTI. bp Vital Signs: 07:25 BP 142 / 90; Pulse 105; Resp 18 S; Temp 98.3(O); Pulse Ox 100% on R/A; Weight 104.33 kg aa5 (R); Height 5 ft. 8 in. (172.72 cm) (R); 08:40 BP 135 / 81; Pulse 94; Resp 16; Pulse Ox 99% ; bp 10:45 BP 116 / 63; Pulse 86; Resp 15; Pulse Ox 100% ; bp 07:25 Body Mass Index 34.97 (104.33 kg, 172.72 cm) [facility] ED Course: 07:20 Patient arrived in ED. as 07:25 Jadiel Lopes, JUDY is Primary Nurse. bp 07:25 Arm band placed on. [facility] 07:26 Jian Khan PA is PHCP. [facility] 07:26 Jarrett Hong MD is Attending Physician. [facility] 07:30 Triage completed. 5 07:55 Urine --Ancillary Sent. 5 07:55 Urine --Ancillary (enter results) Sent. 5 07:55 Basic Metabolic Panel Sent. 5 07:55 CBC with Diff Sent. 5 07:55 Hepatic Function Sent. 5 07:56 Lipase Sent. 5 07:57 Patient has correct armband on for positive identification. Bed in low position. Call bp light in reach. Side rails up X2. 07:57 Inserted saline lock: 20 gauge in right forearm, using aseptic technique. Blood bp collected. 07:59 Warm blanket given. Pulse ox on. NIBP on. 5 07:59 Initial lab(s) drawn, by me, sent to lab. Urine collected: clean catch specimen, clear. 5 Missed attempt(s): 22 gauge antecubital area. 10:52 No provider procedures requiring assistance completed. IV discontinued, intact, bp bleeding controlled, No redness/swelling at site. Pressure dressing applied. Administered Medications: 08:00 Drug: Pepcid (famotidine) 20 mg Route: IVP; Site: right forearm; bp 08:40 Follow up: Response: No adverse reaction bp 10:20 Drug: Insulin Regular Human 10 units {Co-Signature: jd3 (Akhil Ray RN).} Route: bp IVP; Site: right antecubital; 10:39 Follow up: Response: No adverse reaction bp Outcome: 10:27 Discharge ordered by . jessica 10:52 Discharged to home ambulatory. bp 10:52 Condition: stable 10:52 Discharge instructions given to patient, Instructed on discharge instructions, follow up and referral plans. medication usage, Demonstrated understanding of instructions, follow-up care, medications, Prescriptions given X 3. 11:05 Patient left the ED. bp Signatures: Jian Khan PA PA jmm Martinez, Amelia as Calderon, Audri, RN RN aa5 Martinez, Maria Jadiel Presley RN RN bp Akhil Ray RN jd3
[2021-08-31] MEDS ORDERED: INSULIN -REGULAR HUMAN 50 UNIT/0.5 ML ML ONE (10:53)
[2021-08-31 11:09] VITALS: TEMP 98.3
[2021-08-31 11:11] VITALS: BP 116/63; O2SAT 100
== END 2021-08-31 11:05 | disposition home or self-care (01) ==
LOC: ER 07:17
DX: L29.9 Pruritus, unspecified (principal); N39.0 Urinary tract infection, site not specified; E11.65 Type 2 diabetes mellitus with hyperglycemia; I10 Essential (primary) hypertension
CPT/HCPCS: 36415; 80048; 80076; 81003; 81025; 82947; 83690; 85025; 96374; 96375; 99284